=== PATIENT | female | born 1975 | race Caucasian/White ===

== ENCOUNTER 2019-12-20 10:39 | Emergency (ER) | payer OTHER ==
[~2019-12-20] VITALS: Ht 157.5 cm; Wt 68.0 kg
[2019-12-20 11:36] LABS: BASOPHILS % 0.1 % (0.0-1.0); EOSINOPHILS # (AUTO) 0.2 (0.0-0.4); EOSINOPHILS % 2.6 % (0.0-6.0); HEMATOCRIT 32.8 % (34.2-44.1); HEMOGLOBIN 10.3 g/dL (12.0-16.0); LYMPHOCYTES # (AUTO) 1.9 (1.0-3.2); LYMPHOCYTES % 27.6 % (18.0-39.1); MEAN CORPUSCULAR HEMOGLOBIN 22.9 pg (28-32); MEAN CORPUSCULAR HGB CONC 31.4 g/dL (31-35); MEAN CORPUSCULAR VOLUME 73.1 fL (81-99); MONOCYTES # (AUTO) 0.4 (0.2-0.8); MONOCYTES % 6.2 % (4.4-11.3); NEUTROPHILS # (AUTO) 4.4 (2.1-6.9); NEUTROPHILS % 63.2 % (38.7-80.0); PLATELET COUNT 288 x10e3/uL (140-360); RED BLOOD COUNT 4.49 x10e6/uL (3.6-5.1); RED CELL DISTRIBUTION WIDTH 17.1 % (11.7-14.4)
[2019-12-20 12:05] LABS: ANION GAP 16.5 mmol/L (8-16); BLOOD UREA NITROGEN 6 mg/dL (7-26); BUN/CREATININE RATIO 7 (6-25); CALCIUM 9.2 mg/dL (8.4-10.2); CARBON DIOXIDE 22 mmol/L (22-29); CHLORIDE 102 mmol/L (98-107); CREATININE, SERUM 0.81 mg/dL (0.57-1.11); EST GLOMERULAR FILTRATION RATE > 60 ML/MIN (60-); GLUCOSE 97 mg/dL (74-118); POTASSIUM 3.5 mmol/L (3.5-5.1); SODIUM 137 mmol/L (136-145)
[2019-12-20 12:09] LABS: CLARITY,URINE CLEAR (CLEAR); COLOR,URINE YELLOW (YELLOW); KETONES,URINE NEGATIVE (NEGATIVE); LEUKOCYTE ESTERASE ,URINE NEGATIVE (NEGATIVE); NITRITE,URINE NEGATIVE (NEGATIVE); PROTEIN,URINE DIPSTICK NEGATIVE (NEGATIVE)
[2019-12-20 12:10] LABS: BACTERIA,URINE FEW /HPF; BILIRUBIN,URINE NEGATIVE (NEGATIVE); EPITHELIAL CELLS,URINE MANY /LPF; URINE UROBILINOGEN 0.2 mg/dL (0.2 - 1)
--- NOTE | 2019-12-20 12:16 | NUR ---
SPOKE WITH [facility]. THEY CALLED OUT ULTRASOUND 30- 45 MIN AGO
[2019-12-20 13:12] VITALS: BP 157/98
[2019-12-20] MEDS ORDERED: SODIUM CHLORIDE 0.9% 1000ML 1,000 ML IV STA (13:12)
[2019-12-20] MEDS ORDERED: ONDANSETRON HCL INJ 2MG/ML 2ML 2 MG/ML VIAL IV ONE (13:15)
--- NOTE | 2019-12-20 13:39 | Diagnostic Imaging Report ---
EXAM: First Trimester Obstetric Pelvic Ultrasound INDICATION: ^abd pain COMPARISON: None TECHNIQUE: Grayscale transverse and sagittal transabdominal and transvaginal images were obtained of the pelvis. Transvaginal imaging was medically necessary to better evaluate the endometrium, adnexa, and fetus. CLINICAL HISTORY: 44 year old Last menstrual period: 10/22/2019 FINDINGS: Uterus Size: 10.6 x 5.2 x 7.9 cm. Cervix: Normal. Gestational Sac: Location: Intrauterine Average sac diameter: 1.0 cm Estimated sonographic GA: 5 weeks 3 days Subchorionic hemorrhage: None Yolk sac: 0.2 cm. [place] rump length: Not seen Cardiac activity: Not visualized Right ovary Size: 3.1 x 2.7 x 3.8 cm Mass/Cyst: None Left ovary Size: 2.2 x 1.0 x 2.1 cm Mass/Cyst: None Cul-de-sac: No free fluid. IMPRESSION: Single intrauterine with a gestational sac measuring 1.0 cm correlating with 5 weeks 3 days. No heart rate is seen. Recommend follow-up with pelvic ultrasound. Signed by: Tyrone Cortez MD on 12/20/2019 1:37 PM
[2019-12-20] MEDS ORDERED: FAMOTIDINE 20 MG/2 ML VIAL IV ONE (14:00)
== END 2019-12-20 13:58 | disposition home or self-care (01) ==
LOC: ER 10:39
DX: O26.891 Other specified pregnancy related conditions, first trimester (principal); R10.30 Lower abdominal pain, unspecified; R11.2 Nausea with vomiting, unspecified; I10 Essential (primary) hypertension; F41.9 Anxiety disorder, unspecified
CPT/HCPCS: 36415; 76801; 76817; 80048; 81001; 84702; 85025; 99284; J2405; J7030

== ENCOUNTER 2020-04-29 10:11 | Emergency (ER) | payer OTHER ==
[~2020-04-29] VITALS: Ht 157.5 cm; Wt 68.0 kg
--- NOTE | 2020-04-29 10:19 | NUR ---
now states blood drawn in november from pcp and doesnt know why.
[2020-04-29] MEDS ORDERED: SODIUM CHLORIDE 0.9% 1000ML 1,000 ML IV STA (10:20)
--- OUTSIDE RECORDS SUMMARY | 2020-04-29 10:20 | XMS REPORT ---
Author Author MARIELLE Soliman Organization [employer] Address Unknown Phone Unavailable Care Team Providers Care Clinical Specialist Medical Device Name Role Phone Andrew Soliman Unavailable Allergies No Known Allergies Problems Problem Type Condition Code Onset Dates Condition Statu s Problem Allergic rhinitis, unspecified seasonality, unspecifie d trigger J30.9 Active Problem Anxiety F41.9 Active Problem GERD without esophagitis K21.9 Act shagufta Assessment Anxiety F41.9 Active Problem HTN (hypertension), benign I10 A ctive Medications Medication Code System Code Instructions Start Date End Date Status Dosage Buspirone 5 mg Tab [facility] 2001 91614399334 PO twice a day (bid) May Active 1 tablet Results No Known Results Summary Purpose [employer] Submission
--- OUTSIDE RECORDS SUMMARY | 2020-04-29 10:20 | XMS REPORT ---
Author Author MARIELLE Soliman [facility] [employer] Address Unknown Phone Unavailable Care Team Providers Care Accounts Payable Analyst Name Role Phone Andrew Soliman Unavailable Allergies No Known Allergies Problems Problem Type Condition Code Onset Dates Condition Statu s Problem HTN (hypertension), benign I10 A ctive Problem Anxiety F41.9 Active Medications Medication Code System Code Instructions Start Date End Date Status Dosage Omeprazole [facility] 95393031028 40 MG Orally Once a day Nov 14, 2018 Active 1 capsule Results No Known Results Summary Purpose [employer] Submission
--- OUTSIDE RECORDS SUMMARY | 2020-04-29 10:20 | XMS REPORT ---
Author Author MARIELLE Soliman Organization [employer] Address Unknown Phone Unavailable Care Team Providers Care Fleet Maintenance Foreman Name Role Phone Andrew Soliman CP Unavailable Allergies, Adverse Reactions, Alerts Substance Reaction Event Type Z-pack Info Not Available Non Drug Allergy Sulfa Info Not Available Non Drug Allergy Codeine Info Not Available Non Drug Allergy Problems Problem Type Condition Code Onset Dates Condition Statu s Assessment Anxiety F41.9 Active Assessment Allergic rhinitis, unspecified seasonali ty, unspecified trigger J30.9 Active Problem Allergic rhinitis, unspecified seasonality, unspecifie d trigger J30.9 Active Problem Anxiety F41.9 Active Problem GERD without esophagitis K21.9 Act shagufta Assessment GERD without esophagitis K21.9 Act shagufta Assessment HTN (hypertension), benign I10 A ctive Problem HTN (hypertension), benign I10 A ctive Medications Medication Code System Code Instructions Start Date End Date Status Dosage lorazepam 0.5 mg Tab NDC 32108005913 PO once every night Active 1 tablet as needed Buspirone 5 mg Tab NDC 80604175556 PO daily March 18, 2019 Ac tive 1 tablet labetalol 100 mg tablet NDC 0 orally twice a day (bid) June 17, 2019 Active 1 tablet Lisinopril NDC 95597733767 10 mg Orally twice a day (bid) Jun 19 18 Active 1 tablet omeprazole 20 mg Cap, Delayed Release NDC 0 PO daily Active 1 tablet Omeprazole NDC 98240600799 40 MG Orally Once a day Nov 14, 2018 Inactive 1 capsule Vital Signs Date/Time: Dec 19, 2018 BMI 30.05 Index Weight 172.9 lbs Height 63.6 in Temperature 97.1 F Cardiac Monitoring Heart Rate 88 /min Blood Pressure Diastolic 82 mm Hg Blood Pressure Systolic 141 mm Hg Results No Known Results Summary Purpose [employer] Submission
--- OUTSIDE RECORDS SUMMARY | 2020-04-29 10:20 | XMS REPORT ---
Author Author MARIELLE Soliamn [facility] [employer] Address Unknown Phone Unavailable Care Team Providers Care Therapist'S Assistant Name Role Phone Andrew Soliman Unavailable Allergies, Adverse Reactions, Alerts Substance Reaction Event Type Codeine Info Not Available Non Drug Allergy Sulfa Info Not Available Non Drug Allergy Z-pack Info Not Available Non Drug Allergy Problems Problem Type Condition Code Onset Dates Condition Statu s Problem HTN (hypertension), benign I10 A ctive Problem Anxiety F41.9 Active Assessment HTN (hypertension), benign I10 A ctive Assessment Anxiety F41.9 Active Medications Medication Code System Code Instructions Start Date End Date Status Dosage labetalol 100 mg tablet NDC 0 Active not defined Xanax [facility] 45942601742 0.25 MG Orally Twice a day as needed A 2017 Inactive 1 tablet lorazepam 0.5 mg Tab [facility] 32860524775 PO once every night Active 1 tablet as needed Carvedilol [facility] 29155772599 12.5 MG Orally twice a day (bid) Active 1 tablet Lisinopril [facility] 75050431004 10 mg Orally Once a day Jun 19, 2018 Active 1 tablet Clonidine HCl [facility] 98282064530 0.1 MG Orally tw ice a day (bid) as needed for systolic pressure above 160 Active 1 ta blet Pantoprazole Sodium [facility] 72485234706 40 mg Orally Once a day Active 1 tablet Buspirone 5 mg Tab [facility] 65468121706 PO daily March 18, 2019 Ac tive 1 tablet Vital Signs Date/Time: Sep 19, 2018 BMI 31.28 Index Weight 180 lbs Height 63.6 in Temperature 97.4 F Cardiac Monitoring Heart Rate 72 /min Blood Pressure Diastolic 73 mm Hg Blood Pressure Systolic 141 mm Hg Results No Known Results Summary Purpose [employer] Submission
--- OUTSIDE RECORDS SUMMARY | 2020-04-29 10:20 | XMS REPORT | Continuity of Care Document ---
Author Author [facility], MARIELLE ROTH [facility] [employer] Address Unknown Phone Unavailable Care Team Providers Care Casino Cage Cashier Name Role Phone [employer] Unavailable Un available Problems Problem Status Onset Date Classification Date Reported Comments Source HTN (hypertension), benign Act shagufta Problem [id number] 2568 Anxiety Active Problem 05/01/2019 2.16.840.1.223924.4.391.11.91592 Allergic rhinitis, unspecified seasonali ty, unspecified trigger Active Prob aden 05/01/2019 2.16.840.1.926029.4.391.11.79025 GERD without esophagitis Active Problem 05/01/2019 2.16.840.1.564909.4.391.11.2 2568 Medications Medication Details Route Status Patient Instructions Ordering Provider Order Date Source labetalol 100 mg tablet 1 tabl et orally Active orally twice a day (bid) Jourdan 06/17/2019 2.[id number] Buspirone 5 mg Tab 1 tablet PO Active PO twice a day (bid) Jourdan 05/30/2019 2.16.840.1.801695.4.391.11.18227 Buspirone 5 mg Tab 1 tablet PO Active PO daily Jourdan 03/18/2019 2.16.840.1.349141.4.391.11.09370 Omeprazole 1 capsule Orally Active 40 MG Orally Once a day Jourdan 11/14/2018 2.16.840.1.321039.4.391.11.27193 Lisinopril 1 tablet Orally Active 10 mg Orally twice a da y (bid) Jourdan 06/19/2018 2.16.840.1.771286.4.391.11.23723 Xanax 1 tablet Orally Active 0.25 MG Orally Twice a day as needed Jourdan 06/19/2018 2.16.840.1.218282.4.391..71219 lorazepam 0.5 mg Tab 1 tablet as needed PO Active PO once every night Jourdan 2.16840.1.671367.4.391 omeprazole 20 mg Cap, Delayed Release 1 tablet PO Active PO daily Jourdan 2.840.1.506396.4.391 labetalol 100 mg tablet not de fined NA Active Jourdan 2.840.1.344868.4.391 Carvedilol 1 tablet Orally Active 12.5 MG Orally twice a day (bid) Jourdan 2.840.1.511978.4.391 Clonidine HCl 1 tablet Orally Active 0.1 MG Orally twice a d ay (bid) as needed for systolic pressure above 160 Jourdan 2.840.1.737623.4.391.11.2 2568 Pantoprazole Sodium 1 tablet Orally Active 40 mg Orally Once a day Jourdan .840.1.930041.4.391.08236 Allergies, Adverse Reactions, Alerts Substance Category Reaction Severity Reaction type Status Date Reported Comments Source Z-pack Adverse Reaction Info Not Available Adverse Reaction Active 12/19/2018 2.16.840.1.189337.4.391.11.2 2568 Sulfa Adverse Reaction Info Not Available Adverse Reaction Active 12/19/2018 2.16.840.1.066593.4.391.11.2 2568 Codeine Adverse Reaction Info Not Available Adverse Reaction Active 12/19/2018 2.16840.1.524950.4.391.11.2 2568 Immunizations No Data Provided for This Section Results No Data Provided for This Section Pathology Reports No Data Provided for This Section Diagnostic Reports No Data Provided for This Section Consultation Notes No Data Provided for This Section Discharge Summaries No Data Provided for This Section History and Physicals No Data Provided for This Section Vital Signs Vital Sign Value Date Comments Source Weight 172.9 12/19/2018 2.16.840.1.308877.4.391.11.2 2568 Height 63.6 12/19/2018 2.16.840.1.540029.4.391.11.2 2568 Temperature Oral (F) 97.1 F 12/19/2018 2.16.840.1.021054.4.391.11.15035 Heart Rate 88 12/19/2018 2.16.840.1.346086.4.391.11.2 2568 Diastolic (mm Hg) 82 12/19/2018 2.16.840.1.059723.4.391.11.75617 Systolic (mm Hg) 141 12/19/2018 2.16.840.1.401044.4.391.11.39584 Weight 180 09/19/2018 2.16.840.1.616562.4.391.11.2 2568 Height 63.6 09/19/2018 2.16.840.1.127113.4.391.11.2 2568 Temperature Oral (F) 97.4 F 09/19/2018 2.16.840.1.976269.4.391.11.01849 Heart Rate 72 09/19/2018 2.16.840.1.052034.4.391.11.2 2568 Diastolic (mm Hg) 73 09/19/2018 2.16.840.1.992018.4.391.11.14876 Systolic (mm Hg) 141 09/19/2018 2.16.840.1.243080.4.391.11.44093 Encounters No Data Provided for This Section Procedures No Data Provided for This Section Assessment and Plan No Data Provided for This Section Plan of Care No Data Provided for This Section Social History No Data Provided for This Section Family History No Data Provided for This Section Advance Directives No Data Provided for This Section Functional Status No Data Provided for This Section
--- OUTSIDE RECORDS SUMMARY | 2020-04-29 10:21 | XMS REPORT | Continuity of Care Document ---
Author Author [facility] t Organization [facility] t Address [address] [place] [address] Phone Unavailable Care Team Providers Care Tour Narrator Name Role Phone NONSTAFF PCP Unavailable Chet PILLAI Attphys Unavailable Payers Payer Name Policy Type Policy Number Effective Date Expiration Date Yobani Chavira o [id number] 2004 00:00:00 [facility] Problems Condition Name Condition Details Condition Category Status Onset Date Resolution Date Last Treatment Date Treating Clinician Comments Source HTN (hypertension), benign HTN (hypertension), benign Active Problem 05/01/2019 [id number] Problem Active 2019-05-01 02:45:32 Linda Lopez Anxiety Anxi ety Active Problem 05/01/2019 [id number] Problem Active 2019-05-01 02:45:32 Linda Lopez Allergic rhinitis, unspecified seasonality, unspecifie d trigger Allergic rhinitis, unspecified seasonality, unspecified trigger Active Problem 05/01/2019 [id number] Problem Active 2019-05-01 02:45:32 Linda Lopez GERD without esophagitis GERD without esophagitis Active Problem 05/01/2019 [id number] Problem Active 2019-05-01 02:45:32 Linda Lopez Allergies, Adverse Reactions, Alerts Allergy Name Allergy Type Status Severity Reaction(s) Onset Date Inacti ve Date Treating Clinician Comments Source Codeine Allergy to Substance Active Moderate rash, itching, swelling 2019-12-20 00:00:00 [facility] Azithromycin Allergy to Substance Active Severe Tachycardia, trouble breathing 2019-12-20 00:00:00 [facility] SULFA Allergy to Substance Active Moderate rash swelling 2019-12-20 0 0:00:[address] [facility] Codeine Codeine Active Info Not Available 2018-12-19 00:00:00 [facility] Sulfa (Sulfonamide Antibiotics) DA Active 2018-11-12 00 :00:00 [facility] codeine DA Active SV 2018-11-12 00:00:00 [facility] hydrocodone DA Active SV 2018-11-12 00:00:00 [facility] azithromycin DA Active U 2018-11-12 00:00:00 [facility] Sulfa (Sulfonamide Antibiotics) DA Active SV 2018-11-06 00 :00:00 [facility] codeine DA Active SV 2018-11-06 00:00:00 [facility] hydrocodone DA Active SV 2018-11-06 00:00:00 [facility] azithromycin DA Active U 2018-11-06 00:00:00 [facility] Sulfa (Sulfonamide Antibiotics) DA Active SV 2018-07-12 00 :00:00 [facility] codeine DA Active SV 2018-07-12 00:00:00 [facility] hydrocodone DA Active SV 2018-07-12 00:00:00 [facility] azithromycin DA Active U 2018-07-12 00:00:00 [facility] Medications Ordered Medication Name Filled Medication Name Start Date Stop Da te Current Medication? Ordering Clinician Indication Dosage Frequency Signature (SIG) Comments Components Source labetalol 100 mg tablet 2019-06-17 00:00:00 Yes Adnan Jourdan 1 tablet [facility] Buspirone 5 mg Tab 2019-05-30 00:00:00 Yes Adnan Juordan 1 tablet [facility] Buspirone 5 mg Tab 2019-03-18 00:00:00 Yes Adnan Jourdan 1 tablet [facility] lorazepam 0.5 mg Tab 2019-01-10 03:45:16 Yes Adarnold Jourdan 1 tablet as needed Linda Lopez omeprazole 20 mg Cap, Delayed Release 2019-01-10 03:45:16 Yes Adnan Jourdan 1 tablet Linda Campa n Omeprazole 2018-11-14 00:00:00 Yes Adarnold Jourdan 1 capsule Linda Lopez labetalol 100 mg tablet 2018-10-22 03:52:40 Yes Andrew Ra fiq not defined Linda Lopez Carvedilol 2018-10-22 03:52:40 Yes Adnan Jourdan 1 tablet Linda Lopez Clonidine HCl 2018-10-22 03:52:40 Yes Adnan Jourdan 1 tablet Linda Lopez Pantoprazole Sodium 2018-10-22 03:52:40 Yes Adnan Jourdan 1 tablet Linda Lopez Lisinopril 2018-06-19 00:00:00 Yes Adnan Jourdan 1 tablet Linda Lopez Xanax 2018-06-19 00:00:00 Yes Andrew Jourdan 1 table t [facility] Vital Signs Vital Name Observation Time Observation Value Comments Source Weight 2018-12-19 16:00:00 [facility] Height 2018-12-19 16:00:00 [facility] Temperature Oral (F) 2018-12-19 16:00:00 97.1 F [facility] Heart Rate 2018-12-19 16:00:00 [facility] Diastolic (mm Hg) 2018-12-19 16:00:00 [facility] Systolic (mm Hg) 2018-12-19 16:00:00 [facility] Weight 2018-09-19 16:15:00 [facility] Height 2018-09-19 16:15:00 [facility] Temperature Oral (F) 2018-09-19 16:15:00 97.4 F [facility] Heart Rate 2018-09-19 16:15:00 [facility] Diastolic (mm Hg) 2018-09-19 16:15:00 [facility] Systolic (mm Hg) 2018-09-19 16:15:00 [facility] Procedures Procedure Date / Time Performed Performing Clinician [facility] e Obstetrical transvaginal ultrasound in first trimester 12-20 00:00:00 JACQUES LOZANO [facility] Encounters Start Date/Time End Date/Time Encounter Type Admission Type Attendi ng Clinicians Care Facility Care Department Encounter ID Source 2019-12-20 10:39:00 2019-12-20 13:58:00 Departed Emergency Room 1 MARCOS PILLAI [facility] [id number] [facility] 2019-04-30 13:50:00 2019-04-30 13:50:00 Outpatient [facility] [place] [facility] [place] [id number] eClinicalWork s 2019-03-03 12:50:00 2019-03-03 12:50:00 Emergency E [facility] 2019-03-03 06:27:00 2019-03-03 06:27:00 Emergency E [facility] 2019-02-28 22:46:00 2019-02-28 22:46:00 Emergency E [facility] 2019-02-26 02:25:00 2019-02-26 02:25:00 Emergency E [facility] 2018-12-19 10:00:00 2018-12-19 10:00:00 Outpatient [facility] [id number] [employer] 2018-11-14 14:13:00 2018-11-14 14:13:00 Outpatient [facility] [place] [id number] eClinicalWork s 2018-09-19 10:15:00 2018-09-19 10:15:00 Outpatient [facility] [id number] [employer]Clinical[employer] Results Test Description Test Time Test Comments Results Result Comments Source US OB TRANSVAG 1ST TRI SINGLE 2019-12-20 13:21:00 [facility] [address] [place] [address] Patient Name: MARIELLE TREJO MR #: [id number] : 1975 Age/Sex: 44/F Req #: [id number] Adm Physician: Ordered by: JACQUES LOZANO NP Report #: [id number] Location: ER Room/Bed: Procedure: [id number] US/US OB TRANSVAG 1ST TRI SINGLE Exam Date: Exam Time: REPORT STATUS: Signed EXAM: First Trimester Obstetric Pelvic Ultrasound INDICATION: abd pain COMPARISON: None TECHNIQUE: Grayscale transverse and sagittal transabdominal and transvaginal images were obtained of the pelvis. Transvaginal imaging was medically necessary to better evaluate the endometrium, adnexa, and fetus. CLINICAL HISTORY: 44 year old Last menstrual period: 10/22/2019 FINDINGS: Uterus Size: 10.6 x 5.2 x 7.9 cm. Cervix: Normal. Gestational Sac: Location: Intrauterine Average sac diameter: 1.0 cm Estimated sonographic GA: 5 weeks 3 days Subchorionic hemorrhage: None Yolk sac: 0.2 cm. Cayuse rump length: Not seen Cardiac activity: Not visualized Right ovary Size: 3.1 x 2.7 x 3.8 cm Mass/Cyst: None Left ovary Size: 2.2 x 1.0 x 2.1 cm Mass/Cyst: None Cul-de-sac: No free fluid. IMPRESSION: Single intrauterine with a gestational sac measuring 1.0 cm correlating with 5 weeks 3 days. No heart rate is seen. Recommend follow-up with pelvic ultrasound. Signed by: Tyrone Malone MD on 12/20/2019 1:37 PM Dictated By: TYRONE MALONE MD [id number] Transcribed By: JACY on 12/20/19 1337 COPY TO: JACQUES LOZANO NP Sodium Level 2019-12-20 12:19:00 Test Item Sodium Level (test code = 2951-2) 137 136-145 [facility] Siveb1010-79-14 12:19:00* Test Item Value Reference Range Interpretation Comments Potassium Level (test code = 2823-3) 3.5 3.5-5.1 [facility] CenterChloride Tnzmn1523-10-03 12:19:00* Test Item Value Reference Range Interpretation Comments Chloride Level (test code = 2075-0) 102 98-107 [facility] CenterCarbon Dioxide Akkyn7802-50-12 12:19:00* Test Item Value Reference Range Interpretation Comments Carbon Dioxide Level (test code = 2028-9) 22 22-29 [facility] CenterAnion Eey9428-05-85 12:19:00* Test Item Value Reference Range Interpretation Comments Anion Gap (test code = 52692-9) 16.5 8-16 H [facility] Urea Dxcojbqd0504-88-00 12:19:00* Test Item Value Reference Range Interpretation Comments Blood Urea Nitrogen (test code = 3094-0) 6 7-26 L [facility] CenterCreatinine2020-02-02 12:19:00* Test Item Value Reference Range Interpretation Comments Creatinine (test code = 2160-0) 0.81 0.57-1.11 [facility] CenterBUN/Creatinine Tjefq2322-73-62 12:19:00* Test Item Value Reference Range Interpretation Comments BUN/Creatinine Ratio (test code = 3097-3) 7 6-25 [facility] CenterEstimat Glomerular Filtration Rate 2019-12-20 12:19:00* Test Item Value Reference Range Interpretation Comments Estimat Glomerular Filtration Rate (test code = 737538544) > 60 >60 Ranges were taken from the National Kidney Disease Education Program and the [facility] literature.Reference ranges:60 or greater: Xlwnrv77-65 ( for 3 consecutive months): Chronic kidney disease 15 or less: Kidney failureLaredo Medical CenterGlucose Qstjf2264-00-37 12:19:00* Test Item Value Reference Range Interpretation Comments Glucose Level (test code = NTI6631) 97 74-118 [facility] CenterCalcium Yezcg4568-71-88 12:19:00* Test Item Value Reference Range Interpretation Comments Calcium Level (test code = 06994-8) 9.2 8.4-10.2 [facility] CenterHuman Chorionic Gonadotropin, Quant 2019-12-20 12:18:00* Test Item Value Reference Range Interpretation Comments Human Chorionic Gonadotropin, Quant (test code = 32666-8) 20951.51 0-10 H [facility] CenterUrine Xhrjh4824-26-58 12:10:00* Test Item Value Reference Range Interpretation Comments Urine Color (test code = 5778-6) YELLOW YELLOW [facility] CenterU[facility] Tffqgxr9059-60-93 12:10:00* Test Item Value Reference Range Interpretation Comments Urine Clarity (test code = 54111-0) CLEAR CLEAR [facility] CenterU[facility] Specific Ycyuhnt1704-54-88 12:10:00 * Test Item Value Reference Range Interpretation Comments Urine Specific [place] (test code = 5811-5) 1.020 1.010-1.02 5 [facility] CenterU[facility] oF4033-50-08 12:10:00* Test Item Value Reference Range Interpretation Comments Urine pH (test code = 86185-1) 7.5 5-7 [facility] Leukocyte Pdwvataf2457-48-13 12:10:00* Test Item Value Reference Range Interpretation Comments Urine Leukocyte Esterase (test code = 5799-2) NEGATIVE NEGATIVE [facility] Azrxypl2450-81-18 12:10:00* Test Item Value Reference Range Interpretation Comments Urine Nitrite (test code = 50416-2) NEGATIVE NEGATIVE [facility] Center[facility] Fvlsbbd5249-03-58 12:10:00* Test Item Value Reference Range Interpretation Comments Urine Protein (test code = 5804-0) NEGATIVE NEGATIVE [facility] Glucose (UA)2019-12-20 12:10:00* Test Item Value Reference Range Interpretation Comments Urine Glucose (UA) (test code = 2349-9) NEGATIVE NEGATIVE [facility] CenterU[facility] Zqdqwra5759-93-90 12:10:00* Test Item Value Reference Range Interpretation Comments Urine Ketones (test code = 00388-6) NEGATIVE NEGATIVE [facility] CenterU[facility] Wrjudzaynnhn0392-61-49 12:10:00* Test Item Value Reference Range Interpretation Comments Urine Urobilinogen (test code = 02077-1) 0.2 0.2-1 [facility] Center[facility] Awmtykdym5027-11-88 12:10:00* Test Item Value Reference Range Interpretation Comments Urine Bilirubin (test code = 1978-6) NEGATIVE NEGATIVE [facility] Axser0544-76-29 12:10:00* Test Item Value Reference Range Interpretation Comments Urine Blood (test code = 77116-8) NEGATIVE NEGATIVE [facility] CenterU[facility] MAS5052-41-24 12:10:00* Test Item Value Reference Range Interpretation Comments Urine WBC (test code = 5821-4) 6-10 0-5 H [facility] CenterU[facility] SFN9793-22-50 12:10:00* Test Item Value Reference Range Interpretation Comments Urine RBC (test code = 13817-0) NONE 0-5 [facility] CenterU[facility] Kkchqsno0242-70-32 12:10:00* Test Item Value Reference Range Interpretation Comments Urine Bacteria (test code = 74446-5) FEW NONE [facility] Center[facility] Epithelial Anpoj7275-91-31 12:10:00 * Test Item Value Reference Range Interpretation Comments Urine Epithelial Cells (test code = 87459-3) MANY NONE [facility] CenterWhite Blood Ggvnu4964-62-45 11:49:00* Test Item Value Reference Range Interpretation Comments White Blood Count (test code = 6690-2) 6.96 4.8-10.8 [facility] CenterRed Blood Qyniy5824-55-45 11:49:00* Test Item Value Reference Range Interpretation Comments Red Blood Count (test code = 789-8) 4.49 3.6-5.1 [facility] CenterHemoglobin2020-02-02 11:49:00* Test Item Value Reference Range Interpretation Comments Hemoglobin (test code = 79664-5) 10.3 12.0-16.0 L [facility] CenterHematocrit2020-02-02 11:49:00* Test Item Value Reference Range Interpretation Comments Hematocrit (test code = 4544-3) 32.8 34.2-44.1 L [facility] CenterMean Corpuscular Jaeobe3831-91-79 11:49:00* Test Item Value Reference Range Interpretation Comments Mean Corpuscular Volume (test code = 787-2) 73.1 81-99 L [facility] CenterMean Corpuscular Jcwfeoucnq3343-15-07 11:49:00* Test Item Value Reference Range Interpretation Comments Mean Corpuscular Hemoglobin (test code = 785-6) 22.9 28-32 L [facility] CenterMean Corpuscular Hemoglobin Concent 2019-12-20 11:49:00* Test Item Value Reference Range Interpretation Comments Mean Corpuscular Hemoglobin Concent (test code = 786-4) 31.4 31-35 [facility] CenterRed Cell Distribution Plemn3739-63-13 11:49:00* Test Item Value Reference Range Interpretation Comments Red Cell Distribution Width (test code = 49402-2) 17.1 11.7 -14.4 H [facility] CenterPlatelet Zubtt1608-19-37 11:49:00* Test Item Value Reference Range Interpretation Comments Platelet Count (test code = 777-3) 288 140-360 [facility] CenterNeutrophils (%) (Auto)2019-12-20 11:49:00 * Test Item Value Reference Range Interpretation Comments Neutrophils (%) (Auto) (test code = 59362-8) 63.2 38.7-80.0 [facility] CenterLymphocytes (%) (Auto)2019-12-20 11:49:00 * Test Item Value Reference Range Interpretation Comments Lymphocytes (%) (Auto) (test code = 736-9) 27.6 18.0-39.1 [facility] CenterMonocytes (%) (Auto)2019-12-20 11:49:00* Test Item Value Reference Range Interpretation Comments Monocytes (%) (Auto) (test code = 5905-5) 6.2 4.4-11.3 [facility] CenterEosinophils (%) (Auto)2019-12-20 11:49:00 * Test Item Value Reference Range Interpretation Comments Eosinophils (%) (Auto) (test code = 713-8) 2.6 0.0-6.0 [facility] CenterBasophils (%) (Auto)2019-12-20 11:49:00* Test Item Value Reference Range Interpretation Comments Basophils (%) (Auto) (test code = 706-2) 0.1 0.0-1.0 [facility] CenterIM GRANULOCYTES %2019-12-20 11:49:00* Test Item Value Reference Range Interpretation Comments IM GRANULOCYTES % (test code = IM GRANULOCYTES %) 0.3 0.0- 1.0 [facility] CenterNeutrophils # (Auto)2019-12-20 11:49:00* Test Item Value Reference Range Interpretation Comments Neutrophils # (Auto) (test code = 751-8) 4.4 2.1-6.9 [facility] CenterLymphocytes # (Auto)2019-12-20 11:49:00* Test Item Value Reference Range Interpretation Comments Lymphocytes # (Auto) (test code = 57787-6) 1.9 1.0-3.2 [facility] CenterMonocytes # (Auto)2019-12-20 11:49:00* Test Item Value Reference Range Interpretation Comments Monocytes # (Auto) (test code = 742-7) 0.4 0.2-0.8 [facility] CenterEosinophils # (Auto)2019-12-20 11:49:00* Test Item Value Reference Range Interpretation Comments Eosinophils # (Auto) (test code = 711-2) 0.2 0.0-0.4 [facility] CenterBasophils # (Auto)2019-12-20 11:49:00* Test Item Value Reference Range Interpretation Comments Basophils # (Auto) (test code = 704-7) 0.0 0.0-0.1 [facility] CenterAbsolute Immature Granulocyte (auto 2019-12-20 11:49:00* Test Item Value Reference Range Interpretation Comments Absolute Immature Granulocyte (auto (zaina t code = Absolute Immature Granulocyte (auto) 0.02 0-0.1 [facility]- XR CHEST 2 [id number] 01:04:00 FAX: Marta Sandra NP [phone] [place]: St: REG Name: MARIELLE WINKLER [facility] : [birth year] Age/S: 43/F [address] [place] [address] Bl Unit #: [id number] Loc: [place] [address] Phys: Marta Sandra NP Acct: [id number] Dis Date: Status: REG ER PHONE #: [phone] Exam Date: 03/21/2019 2330 FAX #: [phone] Reason: Chest Pain EXAMS: CPT CODE: [id number] XR CHEST 2 V 91121 Chest, single view dated 03/21/2019. HISTORY: Chest pain. Chest tightness. Comparison is made to a prior study dated 03/13/2019. The heart is normal in si ze. The cardiomediastinal shadow appears within normal limits. The lungs appear clear. The pulmonary vasculature is normal in caliber. No acute pleural space abnormalities are identified. Mild degenerative changes are noted in the thoracic spine. IMPRESSION: 1. No r adiographic evidence of acute cardiopulmonary disease. SL: 131 at 0104 Reported and signed by: Neil Dumont M.D. CC: Silas Sandra NP Technologist: DANDRE Ching) Trnscrd Date/Time/By: 03/22/2019 (010) : By: Aston Orig Print D/T: S: 03/22/2019 (0107) PAGE 1 Signed Report BASIC METABOLIC [id number] 23:43:00* Test Item Value Reference Range Interpretation Comments SODIUM (test code = NA) 139 mEq/L 134-147 N POTASSIUM (test code = K) 3.5 mEq/L 3.4-5.0 N CHLORIDE (test code = CL) 103 mEq/L 100-108 N CARBON DIOXIDE (test code = CO2) 28 mEq/L 21-33 N ANION GAP (test code = GAP) 12 0-20 N GLUCOSE (test code = GLU) 88 mg/dL 70-110 N BLOOD UREA NITROGEN (test code = BUN) 10 mg/dL 7-18 N GLOMERULAR FILTRATION RATE (test code = GFR) 68.7 95-105 L Units of measure = ml/min/1.73 m2 CREATININE (test code = CREAT) 0.9 mg/dL 0.6-1.3 N CALCIUM (test code = CA) 8.8 mg/dL 8.0-10.5 N CPK-MB [id number] 23:43:00* Test Item Value Reference Range Interpretation Comments CREATINE KINASE (CK) (test code = CK) 92 35-232 N Result is in INTERNATIONAL UNITS/LITER CKMB (test code = CKMBT) < 1.0 ng/mL 0-5.0 N CUT OFF:>5 ng/mL is suggested as being consistent with AMI. RELATIVE % INDEX (test code = REL%) 1.0 % 0.0-2.5 N *CK-MB INTERPRETATION* NORMAL: <5 ng/ml & <2.5% INDEX ABNORMAL: >5 ng/ml & >2.5% INDEX TUCKER ZONE: >5 ng/ml & <2.5% INDEX - SUGGEST CPK ISOENZYME BY ELECTROPHORESIS *PLEASE NOTE* A LOW TOTAL CK MAY CALCULATE TO A FALSELY ELEVATED INDEX. BASIC METABOLIC [id number] 23:39:00* Test Item Value Reference Range Interpretation Comments SODIUM (test code = NA) 139 mEq/L 134-147 N POTASSIUM (test code = K) 3.5 mEq/L 3.4-5.0 N CHLORIDE (test code = CL) 103 mEq/L 100-108 N CARBON DIOXIDE (test code = CO2) 28 mEq/L 21-33 N ANION GAP (test code = GAP) 12 0-20 N GLUCOSE (test code = GLU) 88 mg/dL 70-110 N BLOOD UREA NITROGEN (test code = BUN) 10 mg/dL 7-18 N GLOMERULAR FILTRATION RATE (test code = GFR) 68.7 95-105 L Units of measure = ml/min/1.73 m2 CREATININE (test code = CREAT) 0.9 mg/dL 0.6-1.3 N CALCIUM (test code = CA) 8.8 mg/dL 8.0-10.5 N CPK-MB [id number] 23:39:00* Test Item Value Reference Range Interpretation Comments CREATINE KINASE (CK) (test code = CK) 35-232 CKMB (test code = CKMBT) ng/mL 0-5.0 RELATIVE % INDEX (test code = REL%) % 0.0-2.5 TROPONIN-I [id number] 23:27:00* Test Item Value Reference Range Interpretation Comments TROPONIN-I RAPID (test code = TROPIRAP) 0.00 ng/mL 0.00-0.08 N Performed by certified small kick press operator at [facility] Negative: <= 0.08 Positive: >= 0.09An elevated troponin value alone is not sufficient todiagnose a myocardial infarction. Rather, the patient sclinical presentation (history, physical exam) and ECGshould be used in conjunction with troponin in thediagnostic evaluation of suspected myocardial infarction. Aserial sampling protocol is recommended to facilitate the identification of temporal changes in troponin levels characteristic of NH. CBC W/AUTO [id number] 23:26:00* Test Item Value Reference Range Interpretation Comments WHITE BLOOD CELL (test code = WBC) 6.37 x10 3/uL 4.5-11.0 N RED BLOOD CELL (test code = RBC) 4.26 x10 6/uL 3.54-5.02 N HEMOGLOBIN (test code = HGB) 11.6 g/dL 11.0-15.0 N HEMATOCRIT (test code = HCT) 35.1 % 33.0-45.0 N MEAN CELL VOLUME (test code = MCV) 82.4 fL 81.0-99.0 N MEAN CELL HGB (test code = MCH) 27.2 pg 27.0-33.0 N MEAN CELL HGB CONCETRATION (test code = MCHC) 33.0 g/dL 33.0-37. 0 N RED CELL DISTRIBUTION WIDTH CV (test code = RDW) 12.3 % 11.5- 14.5 N RED CELL DISTRIBUTION WIDTH SD (test code = RDW-SD) 37.5 fL 37 .0-54.0 N PLATELET COUNT (test code = PLT) 236 x10 3/uL 150-400 N MEAN PLATELET VOLUME (test code = MPV) 11.1 fL 7.0-9.0 H NEUTROPHIL % (test code = NT%) 49.4 % 56.0-77.0 L IMMATURE GRANULOCYTE % (test code = IG%) 0.2 % 0.0-2.0 N LYMPHOCYTE % (test code = LY%) 38.3 % 14.0-32.0 H MONOCYTE % (test code = MO%) 6.6 % 4.8-9.0 N EOSINOPHIL % (test code = EO%) 5.2 % 0.3-3.7 H BASOPHIL % (test code = BA%) 0.3 % 0.0-2.0 N NUCLEATED RBC % (test code = NRBC%) 0.0 % 0-0 N NEUTROPHIL # (test code = NT#) 3.15 x10 3/uL 2.0-7.6 N IMMATURE GRANULOCYTE # (test code = IG#) 0.01 x10 3/uL 0.00-0.03 N LYMPHOCYTE # (test code = LY#) 2.44 x10 3/uL 1.0-3.8 N MONOCYTE # (test code = MO#) 0.42 x10 3/uL 0.1-0.8 N EOSINOPHIL # (test code = EO#) 0.33 x10 3/uL 0.0-0.2 H BASOPHIL # (test code = BA#) 0.02 x10 3/uL 0.0-0.2 N NUCLEATED RBC # (test code = NRBC#) 0.00 x10 3/uL 0.0-0.1 N MANUAL DIFF REQUIRED (test code = MDIFF) NO - CT ANGIO [id number] 14:10:00 Name: MARIELLE TREJO [facility] : 1975 Age/S: 43 / F [address] [place] [address] Unit #: [id number] Loc: [place] [address] Phys: Krunal Abbott MD Acct: [id number] Dis Date: Status: REG ER PHONE #: [phone] Exam Date: 03/13/2019 1347 FAX #: [phone] Reason: eval for pe, cp/sob, elevated d-dimer EXAMS: CPT CODE: [id number] CT ANGIO CHEST 83233 PROCEDURE: CTA CHEST INDICATION: Chest pain, shortness of breath, elevated d-dimer COMPARISON: None. TECHNIQUE: CTA of the pulmonary arteries was performed with 100 ml Isovue 300 intravenous contrast. Multiplanar and 3-D MIP angiographic reconstructions are reviewed. CT imaging performed at this location utilizes radiation dose optimization techniques which include one or more of the following: -Automated exposure control -Adjustment of the mA and/or kV according to patient size -Use of iterative reconstruction technique CT Radiation Dose DLP 338 mGy-cm FINDINGS: PULMONARY ARTERIES: Normal enhancement without intraluminal filling defect. MEDIASTINUM: The mediastinal contents are unremarkable. No adenopathy. HEART: The cardiac chambers are unremarkable. No pericardial effusion. VASCULAR STRUCTURES: The thoracic aorta and great vessels are unremarkable. The superior vena cava is unremarkable. LUNGS: The lungs are clear. No pleural abnormality. UPPER ABDOMEN: Survey of viscera may be limited by early phase of contrast enhancement. No acute abnormality demonstrated. MUSCULOSKELETAL: The skeleton is intact. IMPRESSION: No acute intrathoracic abnormality demonstrated. Specifically, no CT evidence for pulmonary embolus. SL: [id number] PAGE 1 Signed Report (CONTINUED) Name: MARIELLE TREJO [facility] : 1975 Age/S: 43 / F [address] [place] [address] Blvd Unit #: [id number] Loc: [place] [address] Phys: Krunal Abbott MD Acct: [id number] Dis Date: Status: REG ER PHONE #: [phone] Exam Date: 03/13/2019 1347 FAX #: [phone] Reason: eval for pe, cp/sob, elevated d-dimer EXAMS: CPT CODE: [id number] ANGIO CHEST 88241 <Continued> at 1410 Reported and signed by: Nicanor Baker M.D. CC: Krunal Abbott MD Technologist:Christopher francois, RT(R) CTDI: DLP: Trnscb Date/Time: 03/13/2019 (141 0) tSANGEETHA Orig Print D/T: S: 03/13/2019 (1413) C TDI: DLP: PAGE 2 Signed Report B-TYPE NATRIURETIC [id number] 13:21:00* Test Item Value Reference Range Interpretation Comments B-TYPE NATRIURETIC PEPTIDE (test code = BNP) 3.7 PG/ML 0-100 N BASIC METABOLIC [id number] 12:50:00* Test Item Value Reference Range Interpretation Comments SODIUM (test code = NA) 139 mEq/L 134-147 N POTASSIUM (test code = K) 3.9 mEq/L 3.4-5.0 N CHLORIDE (test code = CL) 104 mEq/L 100-108 N CARBON DIOXIDE (test code = CO2) 26 mEq/L 21-33 N ANION GAP (test code = GAP) 13 0-20 N GLUCOSE (test code = GLU) 93 mg/dL 70-110 N BLOOD UREA NITROGEN (test code = BUN) 11 mg/dL 7-18 N GLOMERULAR FILTRATION RATE (test code = GFR) 68.7 95-105 L Units of measure = ml/min/1.73 m2 CREATININE (test code = CREAT) 0.9 mg/dL 0.6-1.3 N CALCIUM (test code = CA) 8.9 mg/dL 8.0-10.5 N [id number] 12:50:00* Test Item Value Reference Range Interpretation Comments LIPASE (test code = LIP) 208 IUnit/L 73-393 N [id number] 12:50:00* Test Item Value Reference Range Interpretation Comments TROPONIN-I (test code = TROPI) < 0.015 ng/mL 0.000-0.045 N Negative: <= 0.045 Positive: >= 0.046 Correlation with serial results, other cardiac markers andclinical findings is necessary to determine the clinicalsignificance of this result. Results using different methodologies should not be comparedto one another as quantitative results may vary by method. [id number] 12:49:00* Test Item Value Reference Range Interpretation Comments D-DIMER (test code = DDIMER) 513 ng/mlFEU <=500 HH THROMBOSIS AND/OR PULMONARY EMBOLISM AND THE CLINICAL CUT- OFF VALUE FOR EXCLUSION (500 ng/mL FEU) OF THESE CONDITIONSIS VALIDATED BY THE PROGRAM MANAGEMENT MANAGER OF THE METHOD. A NEGATIVE D-DIMER RESULT WHEN COMBINED WITH A CLINICALASSESSMENT OF LOW PRETEST PROBABILITY HAS BEEN SHOWN TO HAVEA HIGH NEGATIVE PREDICTIVE VALUE OF DVT OR PE. D-DIMER VALUES >500 ng/mL FEU ARE NOT DIAGNOSTIC FOR DVT, PEor DIC WITHOUT OTHER CONFIRMATORY TESTS AND APPROPRIATECLINICAL EUALUATIONS. CBC W/AUTO [id number] 12:35:00* Test Item Value Reference Range Interpretation Comments WHITE BLOOD CELL (test code = WBC) 7.15 x10 3/uL 4.5-11.0 N RED BLOOD CELL (test code = RBC) 4.65 x10 6/uL 3.54-5.02 N HEMOGLOBIN (test code = HGB) 12.6 g/dL 11.0-15.0 N HEMATOCRIT (test code = HCT) 38.4 % 33.0-45.0 N MEAN CELL VOLUME (test code = MCV) 82.6 fL 81.0-99.0 N MEAN CELL HGB (test code = MCH) 27.1 pg 27.0-33.0 N MEAN CELL HGB CONCETRATION (test code = MCHC) 32.8 g/dL 33.0-37. 0 L RED CELL DISTRIBUTION WIDTH CV (test code = RDW) 12.2 % 11.5- 14.5 N RED CELL DISTRIBUTION WIDTH SD (test code = RDW-SD) 37.2 fL 37 .0-54.0 N PLATELET COUNT (test code = PLT) 221 x10 3/uL 150-400 N MEAN PLATELET VOLUME (test code = MPV) 10.3 fL 7.0-9.0 H NEUTROPHIL % (test code = NT%) 63.6 % 56.0-77.0 N IMMATURE GRANULOCYTE % (test code = IG%) 0.1 % 0.0-2.0 N LYMPHOCYTE % (test code = LY%) 26.9 % 14.0-32.0 N MONOCYTE % (test code = MO%) 6.2 % 4.8-9.0 N EOSINOPHIL % (test code = EO%) 3.1 % 0.3-3.7 N BASOPHIL % (test code = BA%) 0.1 % 0.0-2.0 N NUCLEATED RBC % (test code = NRBC%) 0.0 % 0-0 N NEUTROPHIL # (test code = NT#) 4.55 x10 3/uL 2.0-7.6 N IMMATURE GRANULOCYTE # (test code = IG#) 0.01 x10 3/uL 0.00-0.03 N LYMPHOCYTE # (test code = LY#) 1.92 x10 3/uL 1.0-3.8 N MONOCYTE # (test code = MO#) 0.44 x10 3/uL 0.1-0.8 N EOSINOPHIL # (test code = EO#) 0.22 x10 3/uL 0.0-0.2 H BASOPHIL # (test code = BA#) 0.01 x10 3/uL 0.0-0.2 N NUCLEATED RBC # (test code = NRBC#) 0.00 x10 3/uL 0.0-0.1 N MANUAL DIFF REQUIRED (test code = MDIFF) NO - XR CHEST 1 [id number] 12:14:00 FAX: Krunal Abbott MD [phone] [place]: St: REG Name: MARIELLE WINKLER [facility] : [birth year] Age/S: 43/F [address] [place] [address] Unit #: [id number] Loc: [address] [address] Phys: Krunal Abbott MD Acct: [id number] Dis Date: Status: REG ER PHONE #: [phone] Exam Date: 03/13/2019 1216 FAX #: [phone] Reason: Chest Pain EXAMS: CPT CODE: [id number] XR CHEST 1 V 56515 Patient: MARIELLE TREJO. : 1975; Age: 43 years; Gender: Female. MR: [id number]. O ering physician: Krunal Abbott MD. PORTABLE CHEST AP: HISTORY: Chest pain. COMPARISON: Chest x-ray 03/05/2019. FINDINGS: Portable frontal view of the chest was obtained. The saul ngs are clear bilaterally. The cardiomediastinal silhouette and pulmonary vasculature are unremarkable. The partially visualized upper abdomen is unremarkable. IMPRESSION: No acute disease in the chest. SL: [id number] at 1214 Reported and signed b y: Vargas Lemus M.D. CC: Krunal Abbott MD Technologist: RT Kimberly(Doc) Trnscrd Date/Time/By: 03/13/2019 (4636) : By: [email or web address] Orig Print D/T: S: 03/13/2019 (7825) PAGE 1 Signed Report - XR CHEST 1 [id number] 14:17:00 FAX: Dc Raphael MD [phone] [place]: St: REG Name: MARIELLE WINKLER [facility] : [birth year] Age/S: 43/F [address] [place] [address] Unit #: [id number] Loc: [place] [address] Phys: Dc Raphael MD Acct: [id number] Dis Date: Status: REG ER PHONE #: [phone] Exam Date: 03/05/2019 1410 FAX #: [phone] Reason: chest pain EXAMS: CPT CODE: [id number] XR CHEST 1 V 26942 Study: - XR CHEST 1 V 03/05/2019 1:07 PM Patient Name: MARIELLE TREJO MR: [id number] : 1975; Age: 43 years y/o Female Ordering Physician: Dc Raphael MD Clinical Indication: chest pain Comparison: October 192017 x-ray FINDINGS LUNGS: The lungs are clear of consolidation, pleural effusion, and pneumothorax. HEART AND MEDIASTINUM: Normal size heart. LINES: None. OSSEOUS STRUCTURES: No fracture, dislocation, or suspicious focal osseous lesion. OTHER: None. IMPRESSION: No acute abnormality as above discussed. SL: [id number] Electronically Signed by Savana Bañuelos on at 1417 Reported and signed by: Gee Patel CC: Dc Raphael MD Technolog ist: Katy Ramirez,RT(R) Trnscrd Date/Time/By : 03/05/2019 (1417) : By: [email or web address] Orig Print D/T: S: 03/05/2019 (142 0) PAGE 1 Signed Report TROPONIN-I [id number] 13:52:00* Test Item Value Reference Range Interpretation Comments TROPONIN-I RAPID (test code = TROPIRAP) 0.01 ng/mL 0.00-0.08 N Performed by certified small kick press operator at [facility] Negative: <= 0.08 Positive: >= 0.09An elevated troponin value alone is not sufficient todiagnose a myocardial infarction. Rather, the patient sclinical presentation (history, physical exam) and ECGshould be used in conjunction with troponin in thediagnostic evaluation of suspected myocardial infarction. Aserial sampling protocol is recommended to facilitate the identification of temporal changes in troponin levels characteristic of NH. COMPREHENSIVE METABOLIC [id number] 13:47:00* Test Item Value Reference Range Interpretation Comments SODIUM (test code = NA) 136 mEq/L 134-147 N POTASSIUM (test code = K) 3.5 mEq/L 3.4-5.0 N CHLORIDE (test code = CL) 104 mEq/L 100-108 N CARBON DIOXIDE (test code = CO2) 28 mEq/L 21-33 N ANION GAP (test code = GAP) 8 0-20 N GLUCOSE (test code = GLU) 119 mg/dL 70-110 H BLOOD UREA NITROGEN (test code = BUN) 10 mg/dL 7-18 N GLOMERULAR FILTRATION RATE (test code = GFR) 68.7 95-105 L Units of measure = ml/min/1.73 m2 CREATININE (test code = CREAT) 0.9 mg/dL 0.6-1.3 N TOTAL PROTEIN (test code = PROT) g/dL 6.4-8.2 ALBUMIN (test code = ALB) 3.80 g/dL 3.4-5.0 N CALCIUM (test code = CA) 8.1 mg/dL 8.0-10.5 N BILIRUBIN TOTAL (test code = BILT) mg/dL 0.0-1.0 SGOT/AST (test code = AST) 10 IUnit/L 15-37 L SGPT/ALT (test code = ALT) 19 IUnit/L 15-65 N ALKALINE PHOSPHATASE TOTAL (test code = ALKP) IUnit/L 20-125 [id number] 13:47:00* Test Item Value Reference Range Interpretation Comments LIPASE (test code = LIP) 211 IUnit/L 73-393 N COMPREHENSIVE METABOLIC [id number] 13:47:00* Test Item Value Reference Range Interpretation Comments SODIUM (test code = NA) 136 mEq/L 134-147 N POTASSIUM (test code = K) 3.5 mEq/L 3.4-5.0 N CHLORIDE (test code = CL) 104 mEq/L 100-108 N CARBON DIOXIDE (test code = CO2) 28 mEq/L 21-33 N ANION GAP (test code = GAP) 8 0-20 N GLUCOSE (test code = GLU) 119 mg/dL 70-110 H BLOOD UREA NITROGEN (test code = BUN) 10 mg/dL 7-18 N GLOMERULAR FILTRATION RATE (test code = GFR) 68.7 95-105 L Units of measure = ml/min/1.73 m2 CREATININE (test code = CREAT) 0.9 mg/dL 0.6-1.3 N TOTAL PROTEIN (test code = PROT) 7.8 g/dL 6.4-8.2 N ALBUMIN (test code = ALB) 3.80 g/dL 3.4-5.0 N CALCIUM (test code = CA) 8.1 mg/dL 8.0-10.5 N BILIRUBIN TOTAL (test code = BILT) 0.30 mg/dL 0.0-1.0 N SGOT/AST (test code = AST) 10 IUnit/L 15-37 L SGPT/ALT (test code = ALT) 19 IUnit/L 15-65 N ALKALINE PHOSPHATASE TOTAL (test code = ALKP) 60 IUnit/L 20-125 N [id number] 13:47:00* Test Item Value Reference Range Interpretation Comments LIPASE (test code = LIP) 211 IUnit/L 73-393 N PROTHROMBIN [id number] 13:37:00* Test Item Value Reference Range Interpretation Comments PROTHROMBIN TIME PATIENT (test code = PTP) 12.2 SECONDS 9.3-12.9 N INTERNATIONAL NORMAL RATIO (test code = INR) 1.1 0.8-1.2 N TARGET INR BY INDICATION Indication INR1. Prophylaxis of venous thrombosis 2.0 - 3.0 (orthopedic surgery), Prophylaxis of venous thrombosis (other than high-risk surgery), Treatment of Deep Vein Thrombosis/Pulmonary Embolism, Prevention of systemic embolism - Tissue heart valves, Acute Myocardial Infarction (to prevent systemic embolism), Valvular heart disease, Atrial Fibrillation, Bileaflet mechanical valve in aortic position.2. Mechanical prosthetic valves (high risk), 2.5 - 3.5 Presence of Lupus Anticoagulant or Antiphospholipid Antibodies, Prevention of systemic embolism - Acute Myocardial Infarction (to prevent recurrent infarct). CBC W/AUTO [id number] 13:30:00* Test Item Value Reference Range Interpretation Comments WHITE BLOOD CELL (test code = WBC) 6.40 x10 3/uL 4.5-11.0 N RED BLOOD CELL (test code = RBC) 4.16 x10 6/uL 3.54-5.02 N HEMOGLOBIN (test code = HGB) 11.5 g/dL 11.0-15.0 N HEMATOCRIT (test code = HCT) 35.8 % 33.0-45.0 N MEAN CELL VOLUME (test code = MCV) 86.1 fL 81.0-99.0 N MEAN CELL HGB (test code = MCH) 27.6 pg 27.0-33.0 N MEAN CELL HGB CONCETRATION (test code = MCHC) 32.1 g/dL 33.0-37. 0 L RED CELL DISTRIBUTION WIDTH CV (test code = RDW) 12.5 % 11.5- 14.5 N RED CELL DISTRIBUTION WIDTH SD (test code = RDW-SD) 39.2 fL 37 .0-54.0 N PLATELET COUNT (test code = PLT) 221 x10 3/uL 150-400 N MEAN PLATELET VOLUME (test code = MPV) 10.5 fL 7.0-9.0 H NEUTROPHIL % (test code = NT%) 56.7 % 56.0-77.0 N IMMATURE GRANULOCYTE % (test code = IG%) 0.3 % 0.0-2.0 N LYMPHOCYTE % (test code = LY%) 31.9 % 14.0-32.0 N MONOCYTE % (test code = MO%) 7.5 % 4.8-9.0 N EOSINOPHIL % (test code = EO%) 3.3 % 0.3-3.7 N BASOPHIL % (test code = BA%) 0.3 % 0.0-2.0 N NUCLEATED RBC % (test code = NRBC%) 0.0 % 0-0 N NEUTROPHIL # (test code = NT#) 3.63 x10 3/uL 2.0-7.6 N IMMATURE GRANULOCYTE # (test code = IG#) 0.02 x10 3/uL 0.00-0.03 N LYMPHOCYTE # (test code = LY#) 2.04 x10 3/uL 1.0-3.8 N MONOCYTE # (test code = MO#) 0.48 x10 3/uL 0.1-0.8 N EOSINOPHIL # (test code = EO#) 0.21 x10 3/uL 0.0-0.2 H BASOPHIL # (test code = BA#) 0.02 x10 3/uL 0.0-0.2 N NUCLEATED RBC # (test code = NRBC#) 0.00 x10 3/uL 0.0-0.1 N MANUAL DIFF REQUIRED (test code = MDIFF) NO
[2020-04-29] MEDS ORDERED: ONDANSETRON HCL INJ 2MG/ML 2ML 2 MG/ML VIAL IV STA (10:24)
[2020-04-29] MEDS ORDERED: KETOROLAC TROMETHAMINE 30 MG/ML VIAL IV STA (10:24)
--- NOTE | 2020-04-29 10:26 | Emergency Department Note ---
History of Present Illnes History of Present Illness Chief Complaint: COVID PUI History of Present Illness This is a 44 year old female brought by EMS for nausea and dizziness prior to arrival. Denies CP, or SOB, reports having cough and Sorethroat of two days duration . 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 Any updates have been documented here. Past Medical History Recent Fever: No Clinical Suspicion of Infectio: No New/Unexplained Change in Ment: No Past Medical History: Hypertension, Anxiety Past Surgical History: None Other Surgery: left foot surgery Social History Smoking Cessation: Never Smoker Alcohol Use: Occasional Any Illegal Drug Use: No Other Last Tetanus: 5 years ago Review of Systems Review of Systems Constitutional: Denies fever EENTM: Reports other (sore throat) Cardiovascular: Reports no symptoms Respiratory: Reports cough Gastrointestinal: Reports no symptoms Genitourinary: Reports no symptoms Musculoskeletal: Reports no symptoms Integumentary: Reports no symptoms Neurological: Reports tingling, Reports weakness Psychological: Reports no symptoms Endocrine: Reports no symptoms Hematological/Lymphatic: Reports no symptoms Physical Exam Related Data Allergies: Coded Allergies: azithromycin (Verified Allergy, Severe, Tachycardia, trouble breathing, 12/20/19) codeine (Verified Allergy, Intermediate, rash, itching, swelling, 12/20/19) Uncoded Allergies: SULFA (Allergy, Intermediate, rash swelling, 12/20/19) Triage Vital Signs Vital Signs Date Time Temp Pulse Resp B/P (MAP) Pulse Ox O2 Delivery O2 Flow Rate FiO2 04/29/20 10:13 98.4 69 18 156/89 100 Physical Exam CONSTITUTIONAL Constitutional: Reports well-developed, Reports well-nourished HENT HENT: Reports normocephalic, Reports atraumatic, Reports oropharynx clear/moist, Reports nose normal HENT L/R: Reports left ext ear normal, Reports right ext ear normal EYES Eyes: Reports PERRL, Reports conjunctivae normal NECK Neck: Reports ROM normal PULMONARY Pulmonary: Reports effort normal, Reports breath sounds normal CARDIOVASCULAR Cardiovascular: Reports regular rhythm, Reports heart sounds normal, Reports capillary refill normal, Reports normal rate GASTROINTESTINAL Abdominal: Reports soft, Reports nontender, Reports bowel sounds normal GENITOURINARY Genitourinary: Reports exam deferred SKIN Skin: Reports warm, Reports dry MUSCULOSKELETAL Musculoskeletal: Reports ROM normal NEUROLOGICAL Neurological: Reports alert, Reports oriented x 3, Reports no gross motor or sensory deficits PSYCHOLOGICAL Psychological: Reports mood/affect normal, Reports judgement normal Results Laboratory Lab results reviewed: Yes Laboratory comments Laboratory Tests Test 04/29/20 10:24 04/29/20 10:20 White Blood Count 9.28 x10e3/uL (4.8-10.8) Red Blood Count 4.01 x10e6/uL (3.6-5.1) Hemoglobin 8.1 g/dL (12.0-16.0) Hematocrit 27.3 % (34.2-44.1) Mean Corpuscular Volume 68.1 fL (81-99) Mean Corpuscular Hemoglobin 20.2 pg (28-32) Mean Corpuscular Hemoglobin Concent 29.7 g/dL (31-35) Red Cell Distribution Width 17.6 % (11.7-14.4) Platelet Count 301 x10e3/uL (140-360) Neutrophils (%) (Auto) 70.2 % (38.7-80.0) Lymphocytes (%) (Auto) 20.6 % (18.0-39.1) Monocytes (%) (Auto) 5.1 % (4.4-11.3) Eosinophils (%) (Auto) 3.6 % (0.0-6.0) Basophils (%) (Auto) 0.2 % (0.0-1.0) Neutrophils # (Auto) 6.5 (2.1-6.9) Lymphocytes # (Auto) 1.9 (1.0-3.2) Monocytes # (Auto) 0.5 (0.2-0.8) Eosinophils # (Auto) 0.3 (0.0-0.4) Basophils # (Auto) 0.0 (0.0-0.1) Absolute Immature Granulocyte (auto 0.03 x10e3/uL (0-0.1) Sodium Level 137 mmol/L (136-145) Potassium Level 3.8 mmol/L (3.5-5.1) Chloride Level 102 mmol/L (98-107) Carbon Dioxide Level 25 mmol/L (22-29) Anion Gap 13.8 mmol/L (8-16) Blood Urea Nitrogen 7 mg/dL (7-26) Creatinine 0.80 mg/dL (0.57-1.11) Estimat Glomerular Filtration Rate > 60 ML/MIN (60-) BUN/Creatinine Ratio 9 (6-25) Glucose Level 103 mg/dL (74-118) Calcium Level 9.0 mg/dL (8.4-10.2) Total Bilirubin 0.2 mg/dL (0.2-1.2) Aspartate Amino Transf (AST/SGOT) 14 IU/L (5-34) Alanine Aminotransferase (ALT/SGPT) 10 IU/L (0-55) Alkaline Phosphatase 64 IU/L (40-150) Total Protein 7.1 g/dL (6.5-8.1) Albumin 3.4 g/dL (3.5-5.0) Globulin 3.7 g/dL (2.3-3.5) Albumin/Globulin Ratio 0.9 (0.8-2.0) Influenza Virus Types A,B Antigen Negative (NEGATIVE) Group A Streptococcus Screen Negative (NEGATIVE) Urine Color Yellow (YELLOW) Urine Clarity Clear (CLEAR) Urine pH 8.5 (5 - 7) Urine Specific [place] 1.025 (1.010-1.025) Urine Protein Negative (NEGATIVE) Urine Glucose (UA) Negative (NEGATIVE) Urine Ketones Negative (NEGATIVE) Urine Blood Negative (NEGATIVE) Urine Nitrite Negative (NEGATIVE) Urine Bilirubin Negative (NEGATIVE) Urine Urobilinogen 0.2 mg/dL (0.2 - 1) Urine Leukocyte Esterase Negative (NEGATIVE) Urine RBC 0-5 /HPF (0-5) Urine WBC 0-5 /HPF (0-5) Urine Epithelial Cells Few /LPF (NONE) Urine Bacteria Rare /HPF (NONE) Urine Test Negative (NEGATIVE) Urine Opiates Screen Negative (NEGATIVE) Urine Methadone Screen Negative (NEGATIVE) Urine Barbiturates Screen Negative (NEGATIVE) Urine Phencyclidine Screen Negative (NEGATIVE) Urine Amphetamines Screen Negative (NEGATIVE) Urine Methamphetamines Screen Negative (NEGATIVE) Urine Benzodiazepines Screen Negative (NEGATIVE) Urine Cocaine Screen Negative (NEGATIVE) Urine Cannabinoids Screen Negative (NEGATIVE) Imaging Imaging results reviewed: Yes Impressions [place] [id number] Patient Name: MARIELLE TREJO MR #: [id number] : 1975 Age/Sex: 44/F Req #: [id number] Adm Physician: Ordered by: BIANKA VACA DO Report #: [id number] Location: ER Room/Bed: Procedure: [id number] DX/CHEST SINGLE (PORTABLE) Exam Date: 04/29/20 Exam Time: 1200 REPORT STATUS: Signed EXAMINATION: CHEST SINGLE (PORTABLE) INDICATION: Cough, dizziness COMPARISON: None FINDINGS: LINES/TUBES:None LUNGS:The lungs are well-inflated. No focal consolidation or pulmonary edema. PLEURA:No pleural effusion or pneumothorax. MEDIASTINUM:The cardiomediastinal silhouette appears normal in size and shape. BONES/SOFT TISSUES:No acute osseous injury. ABDOMEN:No free air under the diaphragm. IMPRESSION: No focal pneumonia or pulmonary edema. Signed by: Xu Oscar MD on 04/29/2020 12:26 PM Dictated By: XU OSCAR MD 1226 Transcribed By: JACY on 04/29/20 1226 COPY TO: BIANKA VACA DO~ Procedures 12 Lead ECG Interpretation ECG Interpretation : ECG: ECG 1 Human Resources Mgr: Interpreted by ED physician Date: Apr 29, 2020 Time: 12:38 Prior ECG tracings: reviewed Rhythm: sinus rhythm Rate: normal BPM: 72 QRS axis: normal ST segments normal: Yes T waves normal: Yes Pacin% capture Clinical Impression: normal ECG Assessment & Plan Medical Decision Making MDM 44 yof presents to the ED for cough of 2 days duration followed by dizziness this AM. COVID-19 considered but patient without fevers or hypoxia. Testing for COVID-19 deferred. Labs and CXR ordered to evaluate for pneumonia and electrolyte imbalance. UA neg for dehydration or infection. CMP normal. CXR reviewed. EKG NSR. patient to be discharged to home with Rx Cheratussin and Azithromycin Assessment & Plan Final Impression: (1) URI (upper respiratory infection) (2) Dizziness Depart Disposition: HOME, SELF-CARE Last Vital Signs Date Time Temp Pulse Resp B/P (MAP) Pulse Ox O2 Delivery O2 Flow Rate FiO2 04/29/20 10:13 98.4 69 18 156/89 100 Medications in the ED Sodium Chloride 1,000 ml @ 0 mls/hr Q0M STAT IV ; Start 04/29/20 at 10:20; Stop 04/29/20 at 10:23; Status DC BIANKA VACA 12, 2020 10:26
[2020-04-29 10:54] LABS: CLARITY,URINE CLEAR (CLEAR); COLOR,URINE YELLOW (YELLOW)
[2020-04-29 10:55] LABS: AMPHETAMINES SCREEN,URINE NEGATIVE (NEGATIVE); BENZODIAZEPINES SCREEN,URINE NEGATIVE (NEGATIVE); BILIRUBIN,URINE NEGATIVE (NEGATIVE); KETONES,URINE NEGATIVE (NEGATIVE); LEUKOCYTE ESTERASE ,URINE NEGATIVE (NEGATIVE); NITRITE,URINE NEGATIVE (NEGATIVE); PHENCYCLIDINE SCREEN,URINE NEGATIVE (NEGATIVE); PROTEIN,URINE DIPSTICK NEGATIVE (NEGATIVE); URINE UROBILINOGEN 0.2 mg/dL (0.2 - 1)
[2020-04-29 10:55] LABS: BASOPHILS % 0.2 % (0.0-1.0); EOSINOPHILS # (AUTO) 0.3 (0.0-0.4); EOSINOPHILS % 3.6 % (0.0-6.0); HEMATOCRIT 27.3 % (34.2-44.1); HEMOGLOBIN 8.1 g/dL (12.0-16.0); LYMPHOCYTES # (AUTO) 1.9 (1.0-3.2); LYMPHOCYTES % 20.6 % (18.0-39.1); MEAN CORPUSCULAR HEMOGLOBIN 20.2 pg (28-32); MEAN CORPUSCULAR HGB CONC 29.7 g/dL (31-35); MEAN CORPUSCULAR VOLUME 68.1 fL (81-99); MONOCYTES # (AUTO) 0.5 (0.2-0.8); MONOCYTES % 5.1 % (4.4-11.3); NEUTROPHILS # (AUTO) 6.5 (2.1-6.9); NEUTROPHILS % 70.2 % (38.7-80.0); PLATELET COUNT 301 x10e3/uL (140-360); RED BLOOD COUNT 4.01 x10e6/uL (3.6-5.1); RED CELL DISTRIBUTION WIDTH 17.6 % (11.7-14.4)
[2020-04-29 11:03] LABS: BACTERIA,URINE RARE /HPF; EPITHELIAL CELLS,URINE FEW /LPF; RBC,URINE 0-5 /HPF (0-5); WBC,URINE (MAN) 0-5 /HPF (0-5)
[2020-04-29 11:04] LABS: STREPTOCOCCUS GRP A ANTIGEN NEGATIVE (NEGATIVE)
[2020-04-29 11:10] LABS: ALANINE AMINOTRANSFERASE 10 IU/L (0-55); ALBUMIN 3.4 g/dL (3.5-5.0); ALBUMIN/GLOBULIN RATIO 0.9 (0.8-2.0); ALKALINE PHOSPHATASE 64 IU/L (40-150); ANION GAP 13.8 mmol/L (8-16); BLOOD UREA NITROGEN 7 mg/dL (7-26); BUN/CREATININE RATIO 9 (6-25); CARBON DIOXIDE 25 mmol/L (22-29); CHLORIDE 102 mmol/L (98-107); EST GLOMERULAR FILTRATION RATE > 60 ML/MIN (60-); GLUCOSE 103 mg/dL (74-118); POTASSIUM 3.8 mmol/L (3.5-5.1); SODIUM 137 mmol/L (136-145)
[2020-04-29 11:18] LABS: INFLUENZAE A&B ANTIGEN (RAPID) NEGATIVE (NEGATIVE)
--- NOTE | 2020-04-29 12:29 | Diagnostic Imaging Report ---
EXAMINATION: CHEST SINGLE (PORTABLE) INDICATION: Cough, dizziness COMPARISON: None FINDINGS: LINES/TUBES:None LUNGS:The lungs are well-inflated. No focal consolidation or pulmonary edema. PLEURA:No pleural effusion or pneumothorax. MEDIASTINUM:The cardiomediastinal silhouette appears normal in size and shape. BONES/SOFT TISSUES:No acute osseous injury. ABDOMEN:No free air under the diaphragm. IMPRESSION: No focal pneumonia or pulmonary edema. Signed by: Josse Oscar MD on 04/29/2020 12:26 PM
== END 2020-04-29 12:53 | disposition home or self-care (01) ==
LOC: ER 10:18
DX: R42 Dizziness and giddiness (principal); R05 Cough; J06.9 Acute upper respiratory infection, unspecified; I10 Essential (primary) hypertension; F41.9 Anxiety disorder, unspecified
CPT/HCPCS: 36415; 71045; 80053; 80307; 81001; 81025; 83518; 85025; 87070; 87400; 93005; 99284; J1885; J2405; J7030

== ENCOUNTER 2022-09-03 10:23 | Emergency (ER) | payer SELFPAY ==
[~2022-09-03] VITALS: Ht 157.5 cm; Wt 68.0 kg
[2022-09-03 10:54] LABS: BASOPHILS % 0.2 % (0.0-1.0); EOSINOPHILS # (AUTO) 0.1 (0.0-0.4); EOSINOPHILS % 1.3 % (0.0-6.0); HEMATOCRIT 31.7 % (34.2-44.1); HEMOGLOBIN 8.9 g/dL (12.0-16.0); LYMPHOCYTES # (AUTO) 1.2 (1.0-3.2); LYMPHOCYTES % 11.7 % (18.0-39.1); MEAN CORPUSCULAR HEMOGLOBIN 18.4 pg (28-32); MEAN CORPUSCULAR HGB CONC 28.1 g/dL (31-35); MEAN CORPUSCULAR VOLUME 65.6 fL (81-99); MONOCYTES # (AUTO) 0.5 (0.2-0.8); NEUTROPHILS # (AUTO) 8.2 (2.1-6.9); NEUTROPHILS % 81.5 % (38.7-80.0); PLATELET COUNT 393 x10e3/uL (140-360); RED BLOOD COUNT 4.83 x10e6/uL (3.6-5.1); RED CELL DISTRIBUTION WIDTH 19.3 % (11.7-14.4)
[2022-09-03 11:19] LABS: ALBUMIN 3.9 g/dL (3.5-5.0); ANION GAP 13.6 mmol/L (8-16); CALCIUM 8.7 mg/dL (8.4-10.2); CREATININE, SERUM 0.84 mg/dL (0.57-1.11); POTASSIUM 3.6 mmol/L (3.5-5.1)
[2022-09-03] MEDS: SODIUM CHLORIDE 0.9% 1000ML 1,000 ML IV ONE (11:50)
[2022-09-03] MEDS: ONDANSETRON HCL INJ 2MG/ML 2ML 2 MG/ML VIAL IV PRN (11:51)
[2022-09-03] MEDS ORDERED: DICYCLOMINE HCL20 MG PO (12:11)
[2022-09-03] MEDS ORDERED: ONDANSETRON ODT4 MG PO (12:11)
[2022-09-03 12:19] LABS: CLARITY,URINE CLEAR (CLEAR); COLOR,URINE YELLOW (YELLOW); KETONES,URINE TRACE (NEGATIVE); LEUKOCYTE ESTERASE ,URINE NEGATIVE (NEGATIVE); NITRITE,URINE NEGATIVE (NEGATIVE); PROTEIN,URINE DIPSTICK 1+ (NEGATIVE); URINE UROBILINOGEN 0.2 mg/dL (0.2 - 1)
[2022-09-03 12:37] LABS: BACTERIA,URINE MODERATE /HPF; EPITHELIAL CELLS,URINE MANY /LPF; RBC,URINE 0-5 /HPF (0-5)
== END 2022-09-03 12:49 | disposition home or self-care (01) ==
LOC: ER 10:29
DX: R11.2 Nausea with vomiting, unspecified (principal); K52.9 Noninfective gastroenteritis and colitis, unspecified; I10 Essential (primary) hypertension; D64.9 Anemia, unspecified; F41.9 Anxiety disorder, unspecified; Z20.822 Contact with and (suspected) exposure to COVID-19
CPT/HCPCS: 36415; 80053; 81001; 84702; 85025; 87400; 99283; J2405; J7030; U0002